=== PATIENT | male | born 1945 | race Caucasian/White ===

== ENCOUNTER 2024-06-03 01:33 | Day surgery (SDC) | payer MEDICARE, OTHER, SELFPAY ==
[2024-05-30 14:12] VITALS: BMI 24.5
--- NOTE | 2024-05-30 14:38 | PC.NURSE ---
Spoke with PATIENT regarding medication ELIQUIS. Pt. verbalizes understanding that the last dose of ELIQUIS is to be taken on 05/30/2024_ and the Endoscopist will instruct them when to restart after the procedure.
[2024-06-03 06:58] VITALS: BP 121/57; PULSE 41; RESP 16; TEMP 36.2; O2SAT 100; BMI 24.5
[2024-06-03] MEDS: LACTATED RINGERS 1,000 ML 150 ML IV CONT (07:08)
--- NOTE | 2024-06-03 07:53 | P.PNAN_ITS ---
Anes - Initial Pre Proc Eval Procedure: Operation Date: 06/03/24 08:00 Proposed Procedures p Colonoscopy - Ok Murphy MD Date/Time: 06/03/24 07:53 Surgeon: Ok Murphy MD Pre Op Diagnosis: hx of colon polyps Patient Data Age: 79 Gender: M Height: 1.91 m Weight: 88.8 kg Last Vital Signs Temp 97.1 F L 06/03/24 06:58 Pulse 41 L 06/03/24 06:58 Resp 16 06/03/24 06:58 BP 121/57 L 06/03/24 06:58 Pulse Ox 100 06/03/24 06:58 O2 Del Method Room Air 06/03/24 06:58 Allergies Allergy/AdvReac Type Severity Reaction Status Date / Time No Known Allergies Allergy Mild Verified 06/03/24 06:56 Home Medications Medication Instructions Recorded Confirmed Type amlodipine 5 mg tablet 5 mg PO DAILY 07/27/19 06/03/24 History apixaban 5 mg tablet (Eliquis) 5 mg PO BID 07/27/19 06/03/24 History atorvastatin 80 mg tablet 80 mg PO DAILY 07/27/19 06/03/24 History ezetimibe 10 mg tablet 10 mg PO DAILY 07/27/19 06/03/24 History ibuprofen 600 mg tablet 600 mg PO PRN PRN PAIN 07/27/19 06/03/24 History levothyroxine 100 mcg tablet 100 mcg PO DAILY 07/27/19 06/03/24 History famotidine 40 mg tablet 40 mg PO PRN PRN REFLUX 05/30/24 06/03/24 History metoprolol succinate 25 mg 25 mg PO DAILY 05/30/24 06/03/24 History tablet,extended release 24 hr [id number] 300 mcg-K 60 1 tablet PO DAILY 05/30/24 06/03/24 History mcg-lycop 600 mcg-lutein 300 mcg tablet (Men 50 Plus Multivitamin) Patient hx anesthesia problems: none Family hx anesthesia problems: none Results Review: All pre-operative results and documents have been reviewed as part of the pre- operative evaluation. [facility] Past Medical History Medical History (Updated 08/04/19 @ 06:52 by Hima Clark, ) Atrial fibrillation BPH (benign prostatic hyperplasia) CAD (coronary artery disease) X1 STENT Gastroesophageal reflux disease HTN (hypertension) Hypothyroidism Irregular heartbeat Family History Family History (Updated 02/08/16 @ 23:21 by DOCTOR UNKNOWN) Father Patient's father is in good health Social History Social History Smoking status: Former smoker Tobacco type: cigarettes Second hand tobacco smoke exposure: No Alcohol intake: current Drinks per week: 3 Alcohol use details: BEERS Substance use: never Substance use type: does not use Living arrangements: with family Spiritual care concerns: No Anes - Eval Final PreProcedure Day of Procedure 06/03/24 07:53 Patient weight: normal Heart: regular rate and rhythm Lungs: clear to auscultation Airway: Mallampati scale class II Neurological: alert and oriented Last oral intake: >/= 8 hours ASA classification: III Emergent: no Anesthetic plan: proceed Anesthesia type and monitoring: general GIVS and standard monitoring Results Review: All pre-operative results and documents have been reviewed as part of the pre- operative evaluation. Informed Consent: The patient's anesthetic plan and its attendant risks and benefits were discusse d with the patient/family/POA. Questions were solicited and answers provided to the satisfaction of the patient/family/POA.
--- NOTE | 2024-06-03 08:02 | PM.IMHP ---
H&P: HPI History of Present Illness Date/Time: 06/03/24 08:02 Chief Complaint: History of colon polyps Narrative: The patient has a history of colonic polyps, the last colonoscopy was 5 years ago Review of Systems Review of Systems: All systems reviewed & are unremarkable except as noted in HPI and below PMFSH Past Medical History Medical History (Updated 06/03/24 @ 08:03 by Ok uMrphy MD) Atrial fibrillation BPH (benign prostatic hyperplasia) CAD (coronary artery disease) X1 STENT Gastroesophageal reflux disease HTN (hypertension) Hypothyroidism Irregular heartbeat Family History Family History (Updated 02/08/16 @ 23:21 by DOCTOR UNKNOWN) Father Patient's father is in good health Social History Social History Smoking status: Former smoker Tobacco type: cigarettes Second hand tobacco smoke exposure: No Alcohol intake: current Drinks per week: 3 Alcohol use details: BEERS Substance use: never Substance use type: does not use Living arrangements: with family Spiritual care concerns: No Meds Home Medications and Allergies Home Medications Medication Instructions Recorded Confirmed Type amlodipine 5 mg tablet 5 mg PO DAILY 07/27/19 06/03/24 History apixaban 5 mg tablet (Eliquis) 5 mg PO BID 07/27/19 06/03/24 History atorvastatin 80 mg tablet 80 mg PO DAILY 07/27/19 06/03/24 History ezetimibe 10 mg tablet 10 mg PO DAILY 07/27/19 06/03/24 History ibuprofen 600 mg tablet 600 mg PO PRN PRN PAIN 07/27/19 06/03/24 History levothyroxine 100 mcg tablet 100 mcg PO DAILY 07/27/19 06/03/24 History famotidine 40 mg tablet 40 mg PO PRN PRN REFLUX 05/30/24 06/03/24 History metoprolol succinate 25 mg 25 mg PO DAILY 05/30/24 06/03/24 History tablet,extended release 24 hr [id number] 300 mcg-K 60 1 tablet PO DAILY 05/30/24 06/03/24 History mcg-lycop 600 mcg-lutein 300 mcg tablet (Men 50 Plus Multivitamin) Allergies Allergy/AdvReac Type Severity Reaction Status Date / Time No Known Allergies Allergy Mild Verified 06/03/24 06:56 Vital Signs Vital Signs - 24 hr 06/03/24 06:58 Temperature 97.1 F L Pulse Rate 41 L Respiratory Rate 16 Blood Pressure 121/57 L Pulse Oximetry 100 Oxygen Delivery Room Air Exam Const: General: cooperative and healthy appearing Resp: Effort & Inspection: normal respiratory effort and able to speak in complete sentences Auscultation: clear to auscultation bilaterally Cardio: Rate: regular rate Rhythm: regular rhythm GI: Inspection: normal to inspection GI Palp: No No hepatosplenomegaly present Auscultation: normal bowel sounds Rectal Exam: deferred Skin: General skin exam: normal color Psych: Appearance: grossly normal Mental Status: mental status grossly normal Assessment and Plan Assessment and plan (1) History of colonic polyps: Code(s): Z86.0100 - Personal history of colon polyps, unspecified Status: Acute Assessment and Plan: The patient is deemed a good candidate for the procedure. Consent signed. Will proceed.
--- NOTE | 2024-06-03 08:22 | SUR.OPER ---
Cecal polyp not retrieved. Dr. Murphy aware.
[2024-06-03 08:28] VITALS: BP 113/54; PULSE 72; RESP 21; O2SAT 96
[2024-06-03 08:38] VITALS: BP 122/70; PULSE 66; RESP 21; O2SAT 99
[2024-06-03 08:48] VITALS: BP 128/62; PULSE 85; RESP 22; O2SAT 97
== END 2024-06-03 08:57 | disposition home or self-care (01) ==
PROVIDERS: PCP Emergency Medicine; Visit Provider Internal Medicine Gastroenterology
PROC: 0DJD8ZZ Inspection of Lower Intestinal Tract, Via Natural or Artificial Opening Endoscopic (ICD-10-PCS; CPT 45378; principal; 2024-06-03 08:00)
DX: Z12.11 Encounter for screening for malignant neoplasm of colon (principal); D12.2 Benign neoplasm of ascending colon; K63.5 Polyp of colon; K57.30 Diverticulosis of large intestine without perforation or abscess without bleeding; K64.8 Other hemorrhoids; I48.91 Unspecified atrial fibrillation; I25.10 Atherosclerotic heart disease of native coronary artery without angina pectoris; I10 Essential (primary) hypertension; E03.9 Hypothyroidism, unspecified; N40.0 Benign prostatic hyperplasia without lower urinary tract symptoms; Z95.5 Presence of coronary angioplasty implant and graft; Z79.01 Long term (current) use of anticoagulants; Z87.891 Personal history of nicotine dependence
CPT/HCPCS: 45385; 88305; J2704; J7120